=== PATIENT | female | born 1960 ===

== ENCOUNTER 2024-01-19 15:25 | Emergency (ER) | payer MEDICARE, MEDICAID ==
[2024-01-19 15:47] LABS: BASOPHILS ABSOLUTE AUTO 0.03 K/uL (0.00-0.10); BASOPHILS PERCENT AUTO 0.3 % (0.1-1.3); EOSINOPHILS ABSOLUTE AUTO 0.04 K/uL (0.00-0.40); EOSINOPHILS PERCENT AUTO 0.4 % (0.0-5.4); HEMATOCRIT 46.3 % (34.3-46.0); HEMOGLOBIN 15.4 g/dL (11.2-15.5); IMMATURE GRAN PERCENT AUTO 0.2 % (0.0-0.7); LYMPHOCYTES ABSOLUTE AUTO 1.32 K/uL (0.8-3.3); LYMPHOCYTES PERCENT AUTO 14.8 % (11.4-47.7); MEAN CORPUSCULAR HEMOGLOBIN 28.7 pg (31.6-35.5); MEAN CORPUSCULAR HGB CONC 33.3 g/dL (31.6-35.5); MEAN CORPUSCULAR VOLUME 86.4 fL (81.4-99.0); MONOCYTES ABSOLUTE AUTO 0.59 K/uL (0.20-0.90); MONOCYTES PERCENT AUTO 6.6 % (3.3-12.6); NEUTROPHILS PERCENT AUTO 77.7 % (40.0-78.1); PLATELET COUNT,PLT 298 K/uL (130-375); RED BLOOD CELL COUNT 5.36 M/uL (3.77-5.24); WHITE BLOOD CELL COUNT,WBC 8.9 K/uL (3.2-11.0)
[2024-01-19 15:49] LABS: IMMATURE GRAN ABSOLUTE AUTO 0.02 K/uL (0.00-0.23)
[2024-01-19 16:06] LABS: INR 1.1; PROTHROMBIN TIME 10.9 sec (9.2-10.6); PTT,PARTIAL THROMBOPLSTIN TIME 27.8 sec (21.8-27.3)
[2024-01-19 16:08] LABS: ALANINE AMINOTRANSFERASE,ALT 22 U/L (12-78); ALBUMIN 4.2 g/dL (3.4-5.0); ALKALINE PHOSPHATASE 90 U/L (46-116); ANION GAP 12.5 mmol/L (5.0-14.0); ASPARTATE AMNIOTRANSFERASE,AST 19 U/L (15-37); BILIRUBIN TOTAL 0.3 mg/dL (0.2-1.0); BLOOD UREA NITROGEN,BUN 16 mg/dL (7-18); CALCIUM 9.5 mg/dL (8.5-10.1); CARBON DIOXIDE,CO2 27 mmol/L (21-32); CHLORIDE,CL 103 mmol/L (100-108); CREATININE 0.8 mg/dL (0.6-1.0); EST CRCL DRUG DOSING (CG) 68.18 mL/min; ESTIMATED GFR 81 mL/min (>60); GLUCOSE RANDOM 106 mg/dL (74-106); POTASSIUM,K 3.7 mmol/L (3.6-5.2); PROTEIN TOTAL,TP 8.2 g/dL (6.4-8.2); SODIUM,NA 142 mmol/L (140-148)
[2024-01-19 16:09] LABS: A/G RATIO 1.1 (1.2-2.2)
[2024-01-19] MEDS: Sodium Chloride 0.9% 10 ML Syringe FLUSH PRN (16:13)
[2024-01-19] MEDS: niCARdipine HCl 25 MG in Sodium Chloride 0.9% 240 ML IV SCH (16:16)
== END 2024-01-19 17:20 ==
LOC: JP.ED 15:25 → EDBD 15:25 → JP.ED 17:20
DX: I61.9 Nontraumatic intracerebral hemorrhage, unspecified (principal); F17.200 Nicotine dependence, unspecified, uncomplicated
CPT/HCPCS: 36415; 70450; 80053; 82947; 84484; 85025; 85610; 85730; 93005; 93010; 96365; 99284; 99285; J3490; J7050